=== PATIENT | male | born 1950 | race Two or more races ===

== ENCOUNTER 2017-03-30 11:03 | Emergency (ER) | payer BC ==
[~2017-03-30] VITALS: Ht 172.7 cm; Wt 104.3 kg
[~2017-03-30 11:03] MED LIST: ACET500T68 PO; AMOX1TAB11 PO; ASPI-630 PO; CALC300T5 PO; CINA30TA2; CINA60TA PO; CLOP75TA PO; CLOP75TA57 PO; DOXA4TAB3 PO; ENAL5TAB PO; FAMO-63 PO; FAMO20TA5; FOLI1TAB30 PO; INSU100I13 SQ; INSU100I17 SQ; INSU100V8 SQ; LEVO100T5 PO; LEVO125T5; ONDA4TAB11 PO; PROAIR HFA8.5 GM INH; RANI150C PO; RANI150T2; SEVE2.4P; SEVE800T9 PO; SIMV80TA PO; SIMV80TA3 PO; [UNRECOGNIZED DRUG - CODE] PO; vit
--- NOTE | 2017-03-30 11:44 | RAD ---
Indication: Chest pain. Time of exam 11:38 AM Correlation is made with prior exam from 06/30/2016. The heart is enlarged but stable. There are changes of median sternotomy. Cardiac pacer remains in place. The lungs are clear. No infiltrate or failure is detected. No effusion or pneumothorax is identified. Impression: Stable chest. No acute feature is detected.
[2017-03-30] MEDS: NITROGLYCERIN SUBLINGUAL 0.4 MG BOTTLE OF 25. SL PRN ×3 (11:45→12:15)
[2017-03-30 11:49] LABS: BASO % 1 % (0-3); EOS % 3 % (0-3); HEMATOCRIT 34.7 % (39.0-53.0); HEMOGLOBIN 11.8 g/dL (13.0-17.5); LYMPH # 1.1 x10^3/uL (1.0-4.8); LYMPH % 22 % (24-48); MEAN CORPUSCULAR HEMOGLOBIN 34 pg (25-35); MEAN CORPUSCULAR HGB CONC 34 g/dL (31-37); MEAN CORPUSCULAR VOLUME 101 fL (79-100); MONO % 8 % (0-9); NEUT % 67 % (31-73); PLATELET COUNT 148 x10^3/uL (140-400); RED BLOOD COUNT 3.45 x10^6/uL (4.30-5.70); RED CELL DISTRIBUTION WIDTH 12.9 % (11.5-14.5)
--- NOTE | 2017-03-30 11:49 | EKG ---
[facility] [address] [place] [id number] Test Date: 2017-03-30 Test Time: 11:11:08 Pat Name: ROVERTO WILLSON Department: Room: Gender: M Rn Cardiac Cath: : 1950 Requested By: ZE DUNN Order Number: [id number] Reading MD: Daly Obrien Measurements Intervals [place] Rate: 61 P: 39 [place]: 206 QRS: -52 QRSD: 172 T: 73 QT: 528 QTc: 533 Interpretive Statements SINUS RHYTHM ABNORMAL LEFT AXIS DEVIATION RIGHT BUNDLE BRANCH BLOCK QRS(T) CONTOUR ABNORMALITY CONSISTENT WITH INFERIOR INFARCT PROBABLY OLD Electronically Signed On 03-30-2017 21:01:45 CDT by Daly Obrien
[2017-03-30 11:55] LABS: CALCIUM 7.8 mg/dL (8.5-10.1); CREATININE 8.3 mg/dL (0.7-1.3); GFR 6.5; POTASSIUM 5.6 mmol/L (3.5-5.1)
[2017-03-30 12:01] LABS: ALBUMIN 3.7 g/dL (3.4-5.0); DIRECT BILIRUBIN 0.1 mg/dL (0.0-0.2); MAGNESIUM 2.6 mg/dL (1.8-2.4); TOTAL BILIRUBIN 0.3 mg/dL (0.2-1.0); TOTAL PROTEIN 7.3 g/dL (6.4-8.2)
[2017-03-30 12:09] LABS: INR 0.9 (0.8-1.1); PROTHROMBIN TIME PATIENT 11.7 SEC (11.7-14.0)
[2017-03-30 12:13] LABS: CKMB MASS 2.2 ng/mL (0.0-3.6)
[2017-03-30] MEDS ORDERED: CYCLOBENZAPRINE 10 MG TABLET. PO ONE (12:15)
[2017-03-30] MEDS ORDERED: ACETAMINOPHEN 325 MG TABLET. PO ONE (12:15)
[2017-03-30 12:52] LABS: PLT ESTIMATE ADEQUATE (ADEQUATE)
[2017-03-30 12:58] LABS: BILIRUBIN,URINE NEGATIVE (NEG); GLUCOSE,URINE 500 mg/dL (NEG); NITRITE,URINE NEGATIVE (NEG); PH,URINE 7.5; PROTEIN,URINE 100 mg/dL (NEG-TRACE); UROBILINOGEN,URINE 0.2 mg/dL (0.2 mg/dL)
[2017-03-30 13:04] LABS: BARBITURATES NEG (NEG); BENZODIAZEPINES NEG (NEG); CANNABINOIDS NEG (NEG); COCAINE NEG (NEG); METHADONE NEG (NEG); OPIATES NEG (NEG); PHENCYCLIDINE NEG (NEG)
[2017-03-30 13:08] LABS: BACTERIA,URINE 0 /HPF (0-FEW); RBC,URINE 0 /HPF (0-2); WBC,URINE 0 /HPF (0-4)
--- NOTE | 2017-03-30 14:14 | ED.ADGEN ---
Past Medical History Past Medical History: Arrhythmia, CAD, Diabetes-Type II, High Cholesterol, Hypertension, [place], Renal Disease, Renal Failure Additional Past Medical Histor: pacemaker, mi x 4 (last 2011), high cholesterol Past Surgical History: Coronary Bypass Surgery, Pacemaker Additional Past Surgical Histo: right upper arm AV shunt placed, L eye surgery , pacemaker Alcohol Use: None Drug Use: None Adult General Chief Complaint Chief Complaint: CHEST WALL PAIN HPI HPI Patient is a 66 year old male with history of CAD, CABG, hypertension , diabetes presents with intermittent right-sided parasternal chest wall pain. Pain is worse with palpation, right arm movement and deep breathing. Patient denies shortness breath, cough, fever, abdominal pain, increased leg pain or swelling. Patient lyses Thursday, and Thursday. Denies missed dialysis sessions. Review of Systems Review of Systems Review symptoms as per history of present illness. All other review symptoms are negative. Current Medications Current Medications Current Medications Medications (Trade) Dose Ordered Sig/Sixto Start Time Stop Time Status Last Admin Dose Admin Acetaminophen (Tylenol) 650 mg 1X ONCE 03/30/17 12:15 03/30/17 12:16 DC 03/30/17 12:48 650 MG Cyclobenzaprine HCl (Flexeril) 10 mg 1X ONCE 03/30/17 12:15 03/30/17 12:16 DC 03/30/17 12:49 10 MG Nitroglycerin (Nitrostat) 0.4 mg PRN Q5MIN PRN 03/30/17 11:15 03/30/17 15:51 DC 03/30/17 12:15 0.4 MG Allergies Allergies Allergies Coded Allergies Type Severity Reaction Last Updated Verified No Known Drug Allergies 12/19/13 No Physical Exam Physical Exam Constitutional: Well developed, well nourished, no acute distress, non-toxic appearance. HENT: Normocephalic, atraumatic, bilateral external ears normal, oropharynx moist, no oral exudates, nose normal. Eyes: PERRLA, EOMI, conjunctiva normal. Neck: Normal range of motion, no tenderness. Cardiovascular:Heart rate regular rhythm, no murmur. Reproducible right pinpoint parasternal chest wall pain/tenderness. Chest wall pain reproduces with right shoulder rotation. Lungs & Thorax: Bilateral breath sounds clear to auscultation. Abdomen: Bowel sounds normal, soft, no tenderness. Skin: Warm, dry. Back: No tenderness. Extremities: No tenderness, negative Homans signs. Neurologic: Alert and oriented X 3, normal motor function, normal sensory function, no focal deficits noted. Psychologic: Affect normal, judgement normal, mood normal. Current Patient Data Vital Signs Vital Signs Date Time Temp Pulse Resp B/P (MAP) Pulse Ox O2 Delivery O2 Flow Rate FiO2 03/30/17 15:50 86 165/75 (105) 03/30/17 11:26 97.8 20 97 Room Air 97.8 Lab Values Laboratory Tests Test 03/30/17 11:30 03/30/17 12:43 03/30/17 14:15 White Blood Count 5.0 x10^3/uL (4.0-11.0) Red Blood Count 3.45 x10^6/uL (4.30-5.70) L Hemoglobin 11.8 g/dL (13.0-17.5) L Hematocrit 34.7 % (39.0-53.0) L Mean Corpuscular Volume 101 fL (79-100) H Mean Corpuscular Hemoglobin 34 pg (25-35) Mean Corpuscular Hemoglobin Concent 34 g/dL (31-37) Red Cell Distribution Width 12.9 % (11.5-14.5) Platelet Count 148 x10^3/uL (140-400) Neutrophils (%) (Auto) 67 % (31-73) Lymphocytes (%) (Auto) 22 % (24-48) L Monocytes (%) (Auto) 8 % (0-9) Eosinophils (%) (Auto) 3 % (0-3) Basophils (%) (Auto) 1 % (0-3) Neutrophils # (Auto) 3.3 x10^3uL (1.8-7.7) Lymphocytes # (Auto) 1.1 x10^3/uL (1.0-4.8) Monocytes # (Auto) 0.4 x10^3/uL (0.0-1.1) Eosinophils # (Auto) 0.1 x10^3/uL (0.0-0.7) Basophils # (Auto) 0.0 x10^3/uL (0.0-0.2) Platelet Estimate Adequate (ADEQUATE) Giant Platelets Present Prothrombin Time 11.7 SEC (11.7-14.0) Prothrombin Time INR 0.9 (0.8-1.1) Sodium Level 138 mmol/L (136-145) Potassium Level 5.6 mmol/L (3.5-5.1) H Chloride Level 97 mmol/L (98-107) L Carbon Dioxide Level 30 mmol/L (21-32) Anion Gap 11 (6-14) Blood Urea Nitrogen 87 mg/dL (8-26) H Creatinine 8.3 mg/dL (0.7-1.3) H Estimated GFR (Cockcroft-Gault) 6.5 Glucose Level 387 mg/dL (70-99) H Calcium Level 7.8 mg/dL (8.5-10.1) L Magnesium Level 2.6 mg/dL (1.8-2.4) H Total Bilirubin 0.3 mg/dL (0.2-1.0) Direct Bilirubin 0.1 mg/dL (0.0-0.2) Aspartate Amino Transferase (AST) 22 U/L (15-37) Alanine Aminotransferase (ALT) 31 U/L (16-63) Alkaline Phosphatase 144 U/L (46-116) H Creatine Kinase 107 U/L (39-308) Creatine Kinase MB (Mass) 2.2 ng/mL (0.0-3.6) Creatine Kinase MB Relative Index 2.1 % (0-4) Troponin I Quantitative 0.217 ng/mL (0.000-0.055) 0.192 ng/mL (0.000-0.055) AD-Vpf-T-Type Natriuretic Peptide 36675 pg/mL (0-124) H Total Protein 7.3 g/dL (6.4-8.2) Albumin 3.7 g/dL (3.4-5.0) Lipase 516 U/L (73-393) H Urine Collection Type Unknown Urine Color Yellow Urine Clarity Clear Urine pH 7.5 Urine Specific [place] 1.010 Urine Protein 100 mg/dL (NEG-TRACE) Urine Glucose (UA) 500 mg/dL (NEG) Urine Ketones (Stick) Negative mg/dL (NEG) Urine Blood Small (NEG) Urine Nitrite Negative (NEG) Urine Bilirubin Negative (NEG) Urine Urobilinogen Dipstick 0.2 mg/dL (0.2 mg/dL) Urine Leukocyte Esterase Negative (NEG) Urine RBC 0 /HPF (0-2) Urine WBC 0 /HPF (0-4) Urine Bacteria 0 /HPF (0-FEW) Urine Opiates Screen Neg (NEG) Urine Methadone Screen Neg (NEG) Urine Barbiturates Neg (NEG) Urine Phencyclidine Screen Neg (NEG) Urine Amphetamine/Methamphetamine Neg (NEG) Urine Benzodiazepines Screen Neg (NEG) Urine Cocaine Screen Neg (NEG) Urine Cannabinoids Screen Neg (NEG) Urine Ethyl Alcohol Neg (NEG) Laboratory Tests 03/30/17 11:30 Laboratory Tests 03/30/17 11:30 EKG EKG [EKG: Normal sinus rhythm, rate 61, Q waves and inferior oral and lateral leads , no acute ST-T wave changes, right bundle branch block, inferior leads. QTC 533.] Radiology/Procedures Radiology/Procedures [Chest x-ray: Cardiomegaly with mild pulmonary vascular congestion.] Course & Med Decision Making Course & Med Decision Making Pertinent Labs and Imaging studies reviewed. (See chart for details) [Reproducible chest wall pain with history of CAD, uremic pericarditis. Troponin elevated, possibly secondary to chronic renal failure versus cardiac etiology. Pain relieved with Tylenol Flexeril. Case reviewed with Dr. Roque. Recommends repeating troponin and sending home patient if unchanged and starting on NSAIDs to continue dialysis and office follow-up. Patient is comfortable with discharge plan.] Dragon Disclaimer Dragon Disclaimer This electronic medical record was generated, in whole or in part, using a voice recognition dictation system. SYLVIA NEVILLE DO Mar 30, 2017 14:14
[2017-03-30 15:50] VITALS: BP 165/75
== END 2017-03-30 15:51 | disposition home or self-care (01) ==
LOC: ER 11:03
DX: R07.89 Other chest pain (principal); E78.00 Pure hypercholesterolemia, unspecified; I12.9 Hypertensive chronic kidney disease with stage 1 through stage 4 chronic kidney disease, or unspecified chronic kidney disease; E11.22 Type 2 diabetes mellitus with diabetic chronic kidney disease; N18.9 Chronic kidney disease, unspecified; I25.10 Atherosclerotic heart disease of native coronary artery without angina pectoris; Z95.0 Presence of cardiac pacemaker; I25.2 Old myocardial infarction; Z95.1 Presence of aortocoronary bypass graft
CPT/HCPCS: 36415; 71010; 80048; 80076; 80305; 80320; 81001; 82553; 83690; 83735; 83880; 84484; 85007; 85027; 85610; 93005; G0481; 99285-25

== ENCOUNTER 2017-05-12 18:12 | Emergency (ER) | payer BC ==
[~2017-05-12] VITALS: Ht 172.7 cm; Wt 104.3 kg
--- NOTE | 2017-05-12 19:01 | PHYS DOC ---
Past Medical History Past Medical History: Arrhythmia, CAD, Diabetes-Type II, High Cholesterol, Hypertension, [place], Renal Disease, Renal Failure Additional Past Medical Histor: pacemaker, mi x 4 (last 2011), high cholesterol Past Surgical History: Coronary Bypass Surgery, Pacemaker Additional Past Surgical Histo: right upper arm AV shunt placed, L eye surgery , pacemaker Alcohol Use: None Drug Use: None Adult General Chief Complaint Chief Complaint: TREMORS HPI HPI Patient is a 66 year old male, dialysis patient, brought to the ED by family members. The patient does not speak [place] very well but his family members speak [place] well, are good historians, and translates at the bedside. The complaint today is "tremors" which started at about 6 AM today. He had dialysis this morning at 6 AM as well. He has had this tremor or muscle twitching all day long since 6 AM. There is no pain associated with it. He had this before one time about a month ago, it lasted about half a day and then went away, he did not see a doctor for it. Patient has no pain, no fever or chills. No other complaints. He feels well otherwise. Patient medications were reviewed. He has not recently started or stopped any medications. He was seen here on 03/30 for chest wall pain and he was prescribed cyclobenzaprine. He has 17 left from a prescription of 30. Talking to the patient and his family, it sounds like he take a daily for a week or 2 and then took it intermittently for another week or 2. He believes it's been more than 2 weeks since he took one at all. When I counted pills, I noticed that he had several ranitidine in that bottle, no one could explain that, he does have a prescription for ranitidine as well. I'm wondering if possibly he could be confused about whether or not he has recently taken cyclobenzaprine, however, he does seem to know what his medications look like and he does not believe he has taken any cyclobenzaprine lately. Other medications include: Renal vitamins Simvastatin Thyroid Insulin, NovoLog and Lantus Doxazosin Ranitidine Sensipar - * Plavix Review of Systems Review of Systems Constitutional: Denies fever or chills [] Eyes: Denies change in visual acuity, redness, or eye pain [] HENT: Denies nasal congestion or sore throat [] Respiratory: Denies cough or shortness of breath [] Cardiovascular: Denies chest pain GI: Denies abdominal pain, nausea, vomiting, bloody stools or diarrhea [] Musculoskeletal: Denies back pain or joint pain [] Integument: Denies rash or skin lesions [] Neurologic: Denies headache, focal weakness or sensory changes [] Allergies Allergies Allergies Coded Allergies Type Severity Reaction Last Updated Verified No Known Drug Allergies 12/19/13 No Physical Exam Physical Exam Constitutional: Well developed, well nourished, no acute distress, non-toxic appearance. Alert, mentating normally. Muscle tone is normal except for intermitted "tremor", see below HENT: Normocephalic, atraumatic, bilateral external ears normal, nose normal. [ ] Eyes: conjunctiva normal, no discharge. [] Neck: Normal range of motion, no stridor. [] Cardiovascular:Heart rate regular rhythm, no murmur [] Lungs & Thorax: Bilateral breath sounds clear to auscultation [] Skin: Warm, dry, no erythema, no rash. [] Extremities: No tenderness, no cyanosis, no clubbing, ROM intact, no edema. [] Neurologic: Alert and oriented X 3, normal motor function, normal sensory function, no focal deficits noted. Patient has intermittent episodes that are very brief, lasting less than 1 second, where his head, neck, and shoulders "twitch", some are single, some he will have several in a row. He is able to talk while having these. It does not appear uncomfortable. It appears to effect from the shoulders up. Lower extremities are not affected. Current Patient Data Vital Signs Vital Signs Date Time Temp Pulse Resp B/P (MAP) Pulse Ox O2 Delivery O2 Flow Rate FiO2 05/12/17 20:46 60 18 143/60 (87) 98 Room Air 05/12/17 18:29 98.4 98.4 Lab Values Laboratory Tests Test 05/12/17 19:54 White Blood Count 5.7 x10^3/uL (4.0-11.0) Red Blood Count 4.06 x10^6/uL (4.30-5.70) L Hemoglobin 13.7 g/dL (13.0-17.5) Hematocrit 40.7 % (39.0-53.0) Mean Corpuscular Volume 100 fL (79-100) Mean Corpuscular Hemoglobin 34 pg (25-35) Mean Corpuscular Hemoglobin Concent 34 g/dL (31-37) Red Cell Distribution Width 13.9 % (11.5-14.5) Platelet Count 110 x10^3/uL (140-400) L Neutrophils (%) (Auto) 69 % (31-73) Lymphocytes (%) (Auto) 18 % (24-48) L Monocytes (%) (Auto) 9 % (0-9) Eosinophils (%) (Auto) 3 % (0-3) Basophils (%) (Auto) 1 % (0-3) Neutrophils # (Auto) 4.0 x10^3uL (1.8-7.7) Lymphocytes # (Auto) 1.1 x10^3/uL (1.0-4.8) Monocytes # (Auto) 0.5 x10^3/uL (0.0-1.1) Eosinophils # (Auto) 0.2 x10^3/uL (0.0-0.7) Basophils # (Auto) 0.1 x10^3/uL (0.0-0.2) Sodium Level 140 mmol/L (136-145) Potassium Level 5.0 mmol/L (3.5-5.1) Chloride Level 100 mmol/L (98-107) Carbon Dioxide Level 31 mmol/L (21-32) Anion Gap 9 (6-14) Blood Urea Nitrogen 39 mg/dL (8-26) H Creatinine 6.4 mg/dL (0.7-1.3) H Estimated GFR (Cockcroft-Gault) 8.8 BUN/Creatinine Ratio 6 (6-20) Glucose Level 191 mg/dL (70-99) H Calcium Level 8.0 mg/dL (8.5-10.1) L Ionized Calcium 1.00 mmol/L (1.13-1.32) L Total Bilirubin 0.6 mg/dL (0.2-1.0) Aspartate Amino Transferase (AST) 24 U/L (15-37) Alanine Aminotransferase (ALT) 29 U/L (16-63) Alkaline Phosphatase 153 U/L (46-116) H Total Protein 8.0 g/dL (6.4-8.2) Albumin 3.8 g/dL (3.4-5.0) Albumin/Globulin Ratio 0.9 (1.0-1.7) L Laboratory Tests 05/12/17 19:54 Laboratory Tests 05/12/17 19:54 EKG EKG [] Radiology/Procedures Radiology/Procedures [] Course & Med Decision Making Course & Med Decision Making Pertinent Labs and Imaging studies reviewed. (See chart for details) 66-year-old male dialysis patient presents with approximately 12 hours of "tremor" type activity, he has had this once before about a month ago that went away by itself in one half day. I inspected his medications, see discussion of cyclobenzaprine in history of present illness. I also noted that he has a prescription for Sensipar so question whether that could be related. No medication has been abruptly stopped or started recently. Patient's calcium and ionized calcium are both a bit low but not likely to be so low to be symptomatic. I discussed the case with Dr. Oviedo, nephrology on-call. We agreed the mild hypocalcemia is unlikely to be a cause. He recommended discharge the patient with neurology follow-up. See instructions for plan. I discussed the case with Dr. Landaverde, neurology on-call. He will see the patient in the clinic. He does not believe any treatment is indicated at this time. [] Dragon Disclaimer Dragon Disclaimer This electronic medical record was generated, in whole or in part, using a voice recognition dictation system. Departure Departure Impression: Primary Impression: Muscle twitch Additional Impressions: Hypocalcemia Myoclonus Disposition: 01 HOME, SELF-CARE Condition: STABLE Referrals: REESE WILLSON MD (PCP) KAYLA NEWTON MD Additional Instructions: As we discussed, we did not find a reason in the emergency department for your symptoms. It appears to be a type of muscle twitching that we do sometimes see because of blood electrolyte imbalance, and can happen in dialysis patients. Your calcium level was a little bit low, but Dr. Oviedo and I both do not think that is the cause. I was considering the possibility of the symptoms being caused by cyclobenzaprine, the muscle relaxant that was prescribed on 03/30/17. However, you don't think you've taken any of that for at least a couple of weeks. Please that medication aside and ensure that you do not take it, just in case. I would like you to follow up with a neurology specialist. I discussed your case with him. See the name and phone number to make an appointment. The neurology specialist recommended a muscle relaxing medication, clonazepam, that you can use if the symptoms are very bothersome or keeping you from sleeping. This medication might be sedating, do not take while driving. Take only as needed for symptoms that are bothersome. Scripts Clonazepam (CLONAZEPAM) 0.5 Mg Tablet 1 TAB PO TID for muscle twitching, #20 TAB Prov: KISHORE HOANG MD 05/12/17 Problem Qualifiers KISHORE HOANG MD May 12, 2017 19:01
[2017-05-12 20:03] LABS: BASO # 0.1 x10^3/uL (0.0-0.2); BASO % 1 % (0-3); EOS % 3 % (0-3); HEMATOCRIT 40.7 % (39.0-53.0); HEMOGLOBIN 13.7 g/dL (13.0-17.5); LYMPH # 1.1 x10^3/uL (1.0-4.8); LYMPH % 18 % (24-48); MEAN CORPUSCULAR HEMOGLOBIN 34 pg (25-35); MEAN CORPUSCULAR HGB CONC 34 g/dL (31-37); MEAN CORPUSCULAR VOLUME 100 fL (79-100); MONO % 9 % (0-9); NEUT % 69 % (31-73); PLATELET COUNT 110 x10^3/uL (140-400); RED BLOOD COUNT 4.06 x10^6/uL (4.30-5.70); RED CELL DISTRIBUTION WIDTH 13.9 % (11.5-14.5); WHITE BLOOD COUNT 5.7 x10^3/uL (4.0-11.0)
[2017-05-12 20:13] LABS: CREATININE 6.4 mg/dL (0.7-1.3); GFR 8.8
[2017-05-12 20:19] LABS: ALBUMIN 3.8 g/dL (3.4-5.0); ALBUMIN/GLOBULIN RATIO 0.9 (1.0-1.7); TOTAL BILIRUBIN 0.6 mg/dL (0.2-1.0)
[2017-05-12 20:46] VITALS: BP 143/60
[2017-05-12] MEDS ORDERED: CLON0.5T3 PO (21:01)
== END 2017-05-12 21:21 | disposition home or self-care (01) ==
LOC: ER 18:12
DX: E83.51 Hypocalcemia (principal); G25.3 Myoclonus; R25.3 Fasciculation; E78.00 Pure hypercholesterolemia, unspecified; I13.10 Hypertensive heart and chronic kidney disease without heart failure, with stage 1 through stage 4 chronic kidney disease, or unspecified chronic kidney disease; E11.22 Type 2 diabetes mellitus with diabetic chronic kidney disease; N18.9 Chronic kidney disease, unspecified; Z95.0 Presence of cardiac pacemaker; Z99.2 Dependence on renal dialysis; I25.2 Old myocardial infarction; I25.10 Atherosclerotic heart disease of native coronary artery without angina pectoris; Z95.1 Presence of aortocoronary bypass graft; Z79.4 Long term (current) use of insulin
CPT/HCPCS: 36415; 80053; 82310; 85027; 99284

== ENCOUNTER 2021-06-07 19:36 | Emergency (ER) | payer BC ==
[~2021-06-07] VITALS: Ht 167.6 cm; Wt 81.8 kg
[~2021-06-07 19:36] MED LIST changes: +ALBU2.5V8 INH; +ALPR0.5T6 PO; +Auryxia PO; -CINA30TA2; +CINA30TA24; +CLON-77 PO; +DOXA4TAB2 PO; -ENAL5TAB PO; +ENAL5TAB12 PO; +LEVO125T5 PO; +ONDA-84 PO; -ONDA4TAB11 PO; -PROAIR HFA8.5 GM INH; +SIMV80TA17 PO; -SIMV80TA3 PO; +VIT1TABL71 PO
[2021-06-07] MEDS ORDERED: fentaNYL PF VIAL 100 MCG/2 ML VIAL IV PRN (20:45)
[2021-06-07 20:49] LABS: BASO % 1 % (0-3); EOS # 0.1 x10^3/uL (0.0-0.7); EOS % 2 % (0-3); HEMATOCRIT 38.4 % (39.0-53.0); HEMOGLOBIN 12.8 g/dL (13.0-17.5); LYMPH % 22 % (24-48); MEAN CORPUSCULAR HEMOGLOBIN 33 pg (25-35); MEAN CORPUSCULAR HGB CONC 33 g/dL (31-37); MEAN CORPUSCULAR VOLUME 99 fL (79-100); MONO # 0.4 x10^3/uL (0.0-1.1); MONO % 10 % (0-9); NEUT # 2.9 x10^3/uL (1.8-7.7); NEUT % 65 % (31-73); PLATELET COUNT 84 x10^3/uL (140-400); RED BLOOD COUNT 3.89 x10^6/uL (4.30-5.70); RED CELL DISTRIBUTION WIDTH 14.2 % (11.5-14.5); WHITE BLOOD COUNT 4.5 x10^3/uL (4.0-11.0)
--- NOTE | 2021-06-07 20:56 | PHYS DOC ---
Past Medical History Past Medical History: Arrhythmia, CAD, Diabetes-Type II, High Cholesterol, Hypertension, [place], Renal Disease, Renal Failure Additional Past Medical Histor: pacemaker, mi x 4 (last 2011), high cholesterol (VOLODYMYR MORRIS) Past Surgical History: Pacemaker Additional Past Surgical Histo: "open heart surgery" (VOLODYMYR MORRIS) Smoking Status: Never Smoker Alcohol Use: None Drug Use: None (VOLODYMYR MORRIS) General Adult EDM: Chief Complaint: ABDOMINAL PAIN HPI: HPI: Patient is a 71 year old male with a history of diabetes, hypertension, end- stage renal disease, and pacemaker placement who presents with a 2-hour history of central abdominal pain. Patient states the pain came on suddenly around 18: 30 this evening. He describes the pain as 10/10 stabbing and that it comes and goes. This is the first time he has this type of abdominal pain. He states that nothing makes the pain better or worse, including movement and eating. Patient denies nausea, vomiting, diarrhea, blood in the stool, and dysuria. Patient states his blood pressure today was 99/unknown. His most recent blood sugar readings were 180s yesterday and [id number] today. He states that he takes 4 units of insulin twice a day as compared to his prescribed 5 units 3 times a day. Patient is on dialysis 3 times weekly, Thursday//Thursday. He does not produce urine. Normally he has 4 L of fluid removed at each dialysis appointment. He has not recently missed any appointments. Patient has no other complaints at this time. (VOLODYMYR MORRIS) Review of Systems: Review of Systems: Constitutional: Denies fever or chills. [] Respiratory: Denies cough or shortness of breath. [] Cardiovascular: Denies chest pain or edema. [] GI: Patient reports central/epigastric abdominal pain. Denies nausea, vomiting, bloody stools or diarrhea. [] : Denies dysuria. [] Musculoskeletal: Denies back pain or joint pain. [] Integument: Denies rash. [] Neurologic: Denies headache, focal weakness or sensory changes. [] Endocrine: Reports hyperglycemia. Denies polyuria or polydipsia. [] (VOLODYMYR MORRIS) Heart Score: C/O Chest Pain: No HEART Score for Chest Pain: HEART Score for Chest Pain Response (Comments) Value History Slighlty/Non-Suspicious 0 ECG Normal 0 Age > 65 2 Risk Factors >3 Risk Factors or Hx CAD 2 Total 4 Risk Factors: Risk Factors: DM, Current or recent (<one month) smoker, HTN, HLP, family history of CAD, obesity. Risk Scores: Score 0 - 3: 2.5% MACE over next 6 weeks - Discharge Home Score 4 - 6: 20.3% MACE over next 6 weeks - Admit for Clinical Observation Score 7 - 10: 72.7% MACE over next 6 weeks - Early Invasive Strategies (VOLODYMYR MORRIS) Allergies: Allergies: Allergies Coded Allergies Type Severity Reaction Last Updated Verified No Known Drug Allergies 12/19/13 No (VOLODYMYR MORRIS) Physical Exam: PE: Constitutional: Well developed, well nourished, no acute distress, non-toxic appearance. [] HENT: Normocephalic, atraumatic, bilateral external ears normal, nose normal. [] Eyes: Arcus senilis present. Conjunctiva normal, no discharge. [] Cardiovascular: Heart rate regular rhythm. [] Lungs & Thorax: Vertical scar noted over the sternum. Bilateral breath sounds clear to auscultation [] Abdomen: Abdomen protuberant. Tender to palpation in epigastric region. Bowel sounds normal, soft, no masses, no pulsatile masses. [] Skin: Warm, dry, no erythema, no rash. [] Back: No tenderness. [] Extremities: No tenderness, no cyanosis, no clubbing, ROM intact, no edema. [] Neurologic: Alert and oriented X 3. [] (VOLODYMYR MORRIS) Current Patient Data: Labs: Laboratory Tests Test 06/07/21 20:40 06/07/21 21:00 White Blood Count 4.5 x10^3/uL (4.0-11.0) Red Blood Count 3.89 x10^6/uL (4.30-5.70) Hemoglobin 12.8 g/dL (13.0-17.5) Hematocrit 38.4 % (39.0-53.0) Mean Corpuscular Volume 99 fL (79-100) Mean Corpuscular Hemoglobin 33 pg (25-35) Mean Corpuscular Hemoglobin Concent 33 g/dL (31-37) Red Cell Distribution Width 14.2 % (11.5-14.5) Platelet Count 84 x10^3/uL (140-400) Neutrophils (%) (Auto) 65 % (31-73) Lymphocytes (%) (Auto) 22 % (24-48) Monocytes (%) (Auto) 10 % (0-9) Eosinophils (%) (Auto) 2 % (0-3) Basophils (%) (Auto) 1 % (0-3) Neutrophils # (Auto) 2.9 x10^3/uL (1.8-7.7) Lymphocytes # (Auto) 1.0 x10^3/uL (1.0-4.8) Monocytes # (Auto) 0.4 x10^3/uL (0.0-1.1) Eosinophils # (Auto) 0.1 x10^3/uL (0.0-0.7) Basophils # (Auto) 0.0 x10^3/uL (0.0-0.2) Sodium Level 142 mmol/L (136-145) Potassium Level 5.1 mmol/L (3.5-5.1) Chloride Level 101 mmol/L (98-107) Carbon Dioxide Level 30 mmol/L (21-32) Anion Gap 11 (6-14) Blood Urea Nitrogen 57 mg/dL (8-26) Creatinine 7.7 mg/dL (0.7-1.3) Estimated GFR (Cockcroft-Gault) 7.0 BUN/Creatinine Ratio 7 (6-20) Glucose Level 252 mg/dL (70-99) Calcium Level 8.4 mg/dL (8.5-10.1) Total Bilirubin 0.5 mg/dL (0.2-1.0) Direct Bilirubin 0.2 mg/dL (0.0-0.2) Aspartate Amino Transf (AST/SGOT) 14 U/L (15-37) Alanine Aminotransferase (ALT/SGPT) 24 U/L (16-63) Alkaline Phosphatase 180 U/L (46-116) Lactate Dehydrogenase 211 U/L (85-227) Troponin I Quantitative 0.158 ng/mL (0.000-0.055) Total Protein 7.0 g/dL (6.4-8.2) Albumin 3.7 g/dL (3.4-5.0) Albumin/Globulin Ratio 1.1 (1.0-1.7) Lipase 298 U/L (73-393) Glucose (Fingerstick) 239 mg/dL (70-99) Vital Signs: Vital Signs Date Time Temp Pulse Resp B/P (MAP) Pulse Ox O2 Delivery O2 Flow Rate FiO2 06/07/21 20:03 98.3 60 16 127/62 98 Room Air 98.3 (VOLODYMYR MORRIS) EKG: EKG: Regular rate and rhythm, paced beat. No concerning ST-T wave changes. (VOLODYMYR MORRIS) Radiology/Procedures: Radiology/Procedures: PROCEDURE: CT ABD PELV W/ IV CONTRST ONLY EXAMINATION: CT abdomen and pelvis with IV contrast. INDICATION:71 years, Male, abdominal pain, history of diabetes. TECHNIQUE: Axial CT images of the abdomen and pelvis were obtained. Coronal and sagittal reformatted performed. COMPARISON: None. Exposure: One or more of the following individualized dose reduction techniques were utilized for this examination: 1. Automated exposure control 2. Adjustment of the mA and/or kV according to patient size 3. Use of iterative reconstruction technique. FINDINGS: LOWER CHEST: Left basilar subsegmental atelectasis. Cardiomegaly. Pacemaker lead wires present. ABDOMEN/PELVIS: Enlarged left and caudate lobes with mild surface nodularity. No suspicious focal hepatic lesion. Tiny cholelithiasis without cholecystitis. No biliary ductal dilation. No adrenal nodule. Splenic subcapsular calcifications. No splenomegaly. Mildly atrophic pancreatic parenchyma. Atrophic kidneys with no hydronephrosis. No bowel obstruction or wall thickening. Moderate amount of stool throughout the colon. Appendix is not visualized. Severe aortoiliac atherosclerotic calcifications without dilatation or narrowing. Mesenteric arteries and portal vein are patent. However, high-grade stenosis at the origin of SMA secondary to atherosclerotic calcifications. No pneumoperitoneum or ascites. No ly mphadenopathy in the abdomen or pelvis by size criteria. Underdistended urinary bladder which limits evaluation. Unremarkable prostate. MUSCULOSKELETAL: No acute osseous process. Severe right hip osteoarthritis. Multilevel degenerative changes in the spine. Small fat-containing umbilical hernia. IMPRESSION: 1. No acute intra-abdominal findings. 2. Moderate amount of stool throughout the colon. Correlate for constipation. 3. 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 4. Enlarged left and caudate lobes with mild surface nodularity. Correlate for cirrhosis. 5. Cholelithiasis. Electronically signed by: Shakila Cosby MD (06/07/2021 9:44 PM) [facility] (VOLODYMYR MORRIS) Course & Med Decision Making: Course & Med Decision Making Pertinent Labs and Imaging studies reviewed. (See chart for details) Contrast was administered for abdominal CT scan, as patient has dialysis tomorrow. 500 mL saline was also administered. Importance of maintaining dialysis appointment after giving contrast was discussed. While CT shows some changes in the liver, labs were not concerning for any life- threatening organ failure. There are some gallstones present, and the patient was given precautions for symptoms and triggers of biliary colic. He has no symptoms of cholecystitis at this time. Patient advised to follow-up with PCP and/or GI regarding CT findings. Troponin was elevated at 0.15, however according to [facility] lab results 2017 the patient trended between 0.37 and 0.40. (VOLODYMYR MORRIS) Dragon Disclaimer: Dragon Disclaimer: This electronic medical record was generated, in whole or in part, using a voice recognition dictation system. (VOLODYMYR MORRIS) Departure Departure Impression: Primary Impression: Abdominal pain Additional Impressions: Hyperglycemia ESRD (end stage renal disease) on dialysis Disposition: 01 HOME / SELF CARE / HOMELESS Condition: STABLE Referrals: REESE WILLSON MD (PCP) JJ YEUNG MD Patient Instructions: Abdominal Pain, Kgzi-if-Rate Additional Instructions: If needed, you can take [id number] stool softener such as MiraLAX. Attending Signature Attending Signature I have reviewed the PA/TELEPHONE MAINTAINER's note and plan of care. I was available for consultation as needed during the patient's visit in the emergency department. I agree with the clinical impression, plan, and disposition. (REESE PHILLIPS DO) VOLODYMYR MORRIS Jun 07, 2021 20:56 REESE PHILLIPS DO Jun 07, 2021 22:54
[2021-06-07 21:02] LABS: CALCIUM 8.4 mg/dL (8.5-10.1); CREATININE 7.7 mg/dL (0.7-1.3); POTASSIUM 5.1 mmol/L (3.5-5.1)
[2021-06-07 21:07] LABS: ALBUMIN 3.7 g/dL (3.4-5.0); ALBUMIN/GLOBULIN RATIO 1.1 (1.0-1.7); DIRECT BILIRUBIN 0.2 mg/dL (0.0-0.2); TOTAL BILIRUBIN 0.5 mg/dL (0.2-1.0)
[2021-06-07] MEDS ORDERED: IV NORMAL SALINE 500ML BAG 500 ML IV SCH (21:15)
[2021-06-07] MEDS ORDERED: IV NORMAL SALINE 1000ML BAG 1,000 ML IV SCH (21:15)
[2021-06-07] MEDS ORDERED: IOHEXOL 300 MG/ML 100ML VIAL. IV ONE (21:15)
[2021-06-07] MEDS ORDERED: CONTRAST GIVEN. MC PRN (21:15)
--- NOTE | 2021-06-07 21:46 | RAD ---
EXAMINATION: CT abdomen and pelvis with IV contrast. INDICATION:71 years, Male, abdominal pain, history of diabetes. TECHNIQUE: Axial CT images of the abdomen and pelvis were obtained. Coronal and sagittal reformatted performed. COMPARISON: None. Exposure: One or more of the following individualized dose reduction techniques were utilized for thi s examination: 1. Automated exposure control 2. Adjustment of the mA and/or kV according to patient size 3. Use of iterative reconstruction technique. FINDINGS: LOWER CHEST: Left basilar subsegmental atelectasis. Cardiomegaly. Pacemaker lead wires present. ABDOMEN/PELVIS: Enlarged left and caudate lobes with mild surface nodularity. No suspicious focal hepatic lesion. Tin y cholelithiasis without cholecystitis. No biliary ductal dilation. No adrenal nodule. Splenic subcap sular calcifications. No splenomegaly. Mildly atrophic pancreatic parenchyma. Atrophic kidneys with n o hydronephrosis. No bowel obstruction or wall thickening. Moderate amount of stool throughout the colon. Appendix is n ot visualized. Severe aortoiliac atherosclerotic calcifications without dilatation or narrowing. Mese nteric arteries and portal vein are patent. However, high-grade stenosis at the origin of SMA seconda ry to atherosclerotic calcifications. No pneumoperitoneum or ascites. No lymphadenopathy in the abdom en or pelvis by size criteria. Underdistended urinary bladder which limits evaluation. Unremarkable p rostate. MUSCULOSKELETAL: No acute osseous process. Severe right hip osteoarthritis. Multilevel degenerative changes in the spi ne. Small fat-containing umbilical hernia. IMPRESSION: 1. No acute intra-abdominal findings. 2. Moderate amount of stool throughout the colon. Correlate for constipation. 3. 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 4. Enlarged left and caudate lobes with mild surface nodularity. Correlate for cirrhosis. 5. Cholelithiasis. Electronically signed by: Shakila Cosby MD (06/07/2021 9:44 PM) [facility]
[2021-06-07 23:20] VITALS: BP 133/62
--- NOTE | 2021-06-11 11:46 | EKG ---
[facility] [address] [place] [address] Test Date: 2021-06-07 Test Time: 20:29:28 Pat Name: ROVERTO LITTLE Department: Room: Gender: M Tape Coater: : 1950 Requested By: VOLODYMYR MORRIS Order Number: [id number] Reading MD: Measurements Intervals [place] Rate: 60 P: 90 LA: 82 QRS: 226 QRSD: 202 T: 67 QT: 536 QTc: 541 Interpretive Statements SINUS RHYTHM ABNORMAL RIGHT SUPERIOR AXIS DEVIATION LOW LIMB LEAD VOLTAGE RIGHT BUNDLE BRANCH BLOCK CONSIDER RIGHT VENTRICULAR HYPERTROPHY QRS(T) CONTOUR ABNORMALITY CONSIDER ANTEROSEPTAL MYOCARDIAL DAMAGE CONSISTENT WITH INFERIOR INFARCT PROBABLY OLD ABNORMAL ECG RI6.02 No previous ECG available for comparison
== END 2021-06-07 23:20 | disposition home or self-care (01) ==
LOC: ER 19:36
DX: E11.22 Type 2 diabetes mellitus with diabetic chronic kidney disease (principal); I12.0 Hypertensive chronic kidney disease with stage 5 chronic kidney disease or end stage renal disease; N18.6 End stage renal disease; E11.65 Type 2 diabetes mellitus with hyperglycemia; R10.13 Epigastric pain; I25.10 Atherosclerotic heart disease of native coronary artery without angina pectoris; E78.00 Pure hypercholesterolemia, unspecified; I25.2 Old myocardial infarction; Z95.0 Presence of cardiac pacemaker
CPT/HCPCS: 36415; 74177; 80053; 80076; 82962; 83615; 83690; 84484; 85025; 93005; 96361; 96374; 99285; J3010; J7030; J7040; Q9967